=== PATIENT | female | born 1950 | race Caucasian/White ===

== ENCOUNTER → 2016-11-10 | Day surgery (SDC) | payer MEDICARE, BC ==
[~2016-11-10] VITALS: Ht 157.5 cm; Wt 78.9 kg
[~2016-11-10] MED LIST: *HYDROmorphone PF 1 MG VIAL PERIprocedural Use ONLY ONE; *MEPERIDINE 25 MG INJ VIAL PERIprocedural Use ONLY ONE; *RESP: ALBUTEROL 2.5 MG/3 ML NEB (PRN) PERIprocedural Use ONLY NEB ONE; ACETAMINOPHEN 1000 MG/100 ML VIAL IV ONE; ACETAMINOPHEN/HYDROcodone 325 MG/7.5 MG TAB PO PRN; ATOR20TA15 PO; BETAMETHASONE SOD PHOS/ACETATE SUSP 30 MG/5 ML VIAL IM ONE; BUPIVACAINE/EPINEPHRINE 0.25% PF 30 ML VIAL ONE; BUSP10TA PO; CHLO25TA2 PO; COLA100C3 PO; DO NOT ADM ANY ANTICOAGULANT DRUGS XX PRN; EFFE150C PO; FAMOTIDINE 20 MG/2 ML VIAL ONE; FISH120014 PO; GABA300C5 PO; GELATIN 12 MM/7 MM FOAM ONE; GENTAMICIN SULFATE 80 MG/2 ML VIAL IRRIGATION ONE; GENTAMICIN SULFATE 80 MG/2 ML VIAL ONE; HYDR-3366 PO; INSULIN HUMAN REGULAR 1,000 UNITS/10 ML VIAL SQ PRN; KETOROLAC TROMETHAMINE 60 MG/2 ML (IM) VIAL IM ONE; LACTATED RINGER'S 1000 ML IV SCH; LISI-515 PO; METO25TA3 PO; METOPROLOL TARTRATE 25 MG TAB PO PRN; MIDAZOLAM HCL 2 MG/2 ML VIAL ONE; MORPHINE SULFATE 4 MG/ML INJ IV PUSH PRN; NEOSTIGMINE 3 MG/3 ML SYR IV ONE; ONDANSETRON HCL 4 MG/2 ML VIAL IV ONE; PHENYLEPH/NS 1000 MCG/10 ML SYR IV ONE; POVIDONE IODINE 7.5% SCRUB 118 ML BOTTLE TOP SCH; PROPOFOL 200 MG/20 ML AMP IV ONE; RANI300T PO; SODIUM CHLOR 0.9% 250 ML INJ 250 ML IV ONE; SODIUM CHLORID 0.9% 500 ML IV SCH; SODIUM CHLORIDE 5 ML FLUSH BID IVF SCH; SODIUM CHLORIDE 5 ML FLUSH PRN IVF; TRAZ50TA12 PO; VASOPRESSIN INJ 20 UNITS/ML VIAL ONE; VITA200013 PO; WALKER WHEELS/F1 MIS; ePHEDrine/NS 25 MG/5 ML SYR IV ONE; fentaNYL CITRATE 250 MCG/5 ML AMP ONE; traMADol HCL 50 MG TAB PO PRN
[2016-11-10 06:21] VITALS: BP 156/88; PULSE 55; RESP 18; TEMP 98; O2SAT 96
[2016-11-10] MEDS: ceFAZolin 2 GM PREMIX 50 ML IV SCH ×2 (07:17→07:49)
--- NOTE | 2016-11-10 07:40 | MH ---
cc: WILL LUIS DATE OF ADMISSION 11/10/2016 ADMISSION DIAGNOSIS Herniated nucleus pulposus lumbar spine. HISTORY This is a 66-year-old female with severe right hip and leg pain. Investigative studies shows evidence of a disk herniation L4-5 to the right. The patient has had a previous lumbar laminectomy at that level approaching from the left with a bilateral decompression. The patient now has a disk herniation centrally causing significant right lateral recess stenosis and right leg pain and weakness. She presents for surgical treatment. PAST MEDICAL HISTORY, SOCIAL HISTORY AND FAMILY HISTORY See attached notes. PHYSICAL EXAMINATION An average built female in moderate stress with her back, right hip and leg. HEENT: Normocephalic, atraumatic. Pupils equal, round, reactive to light and accommodation. Extraocular motions intact. NECK: Supple. CHEST: Clear. HEART: Regular rate and rhythm. ABDOMEN: Soft, nontender, normoactive bowel sounds. MUSCULOSKELETAL: Thoracolumbar spine restricted motion, pain with range of motion. [id number] is positive on the right, negative on the left. Motor examination shows weakness of the right extensor halluces longus. IMPRESSION 1. Status post lumbar laminectomy L4-5. 2. 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 3. Right lumbosacral radiculopathy PLAN Revision lumbar laminectomy right L4, L5, lateral recess decompression, resection herniated nucleus pulposus, use of dilation port and microscope. CONSENT The risks of surgery including infection, bleeding, loss of motion, continued pain, need for further surgery, neurologic or vascular injury. The patient understands these issues and wishes to press on with surgery as outlined above. MD ANA MARIA Hernandez/ANTHONY /10:51 PM /7:36 AM
[2016-11-10] MEDS: BUPIVACAINE/EPINEPHRINE 0.25% PF 30 ML VIAL ONE ×2 (07:50→08:13)
--- NOTE | 2016-11-10 09:29 | PD.OP ---
cc: Eduardo Worthy. Operative Report Date of Surgery: Nov 10, 2016 Preoperative Diagnosis: Lumbar spinal stenosis, L4 5. Herniated nucleus pulposus, L4 5, extruded. Right lumbosacral radiculopathy. Status post lumbar laminectomy, L4 5 Postoperative Diagnosis: Same Procedure: Revision lumbar laminectomy L4, L5 from the right, lateral recess decompression , resection herniated nucleus pulposus. Use of dilation port and microscope Anesthesia: Gen. Surgeon: Eduardo Worthy Philanthropy Officer(s): KEIRY Quach Operation and Findings: EBL: 300 cc INDICATION: Patient is a 66-year-old female status post previous laminectomy at the L4 5 level. The patient developed severe onset of back right hip and leg pain. Studies shows evidence of the sequestered disc herniation centrally into the right at the L4 5 level. This patient presents for surgical treatment. NOTE: Gisela Quach PA-C was present for the entire surgical procedure as my help desk assistant. In my medical opinion her skill and care was necessary for the proper management of this patient. PROCEDURE: The patient was brought to the operating room and anesthetized in the supine position. The patient was rolled to a prone position on a Brian frame on a Dionisio table. All pressure points were protected in the back was scrubbed with alcohol followed by Hibiclens followed by ChloraPrep and draped sterilely. A timeout was done and antibiotics were given. AP and lateral radiographic images were used to identify the proper levels and perform skin markings. We started from the right side at the 45 level. A paramedian incision was made and an off-midline fascial incision was made. A dilating system was placed down to the interlaminar space and held provisionally to the side of the table. The microscope was brought into the field. A high-speed bur under the microscope was used to perform a predominantly right-sided laminectomy from that side. A lateral recess decompression extending well above the disc space was accomplished using straight and angled Kerrison punches. A partial medial facetectomy was accomplished. There was evidence of a large sequestered disc herniation and multiple fragments above the disc space extending from an annular defect that was predominantly midline. Moderate to advanced scarring of the crossing L5 nerve root was found from previous scar tissue. Very carefully there was lysis of epidural cicatrix. We were able to free up the L5 nerve root almost completely. Just below the disc space was one area that it was adherent to the dura probably almost underneath the S1 nerve root. This could not be freed up. The crossing and exiting nerve roots were completely decompressed. The wound was irrigated copiously. A small piece of Gelfoam with Celestone was placed into the epidural space. Hemostasis was controlled. The deep fascia was approximated with interrupted 0 Vicryl suture subcutaneous suture with 2-0 Vicryl suture and skin with running intradermal 3-0 Vicryl followed by Dermabond. A field block with local anesthesia was utilized. A sterile dressing was applied. The sponge count and needle counts and instrument counts were all correct. The patient tolerated the procedure well as taken to the recovery room in satisfactory condition. FINDINGS: There was evidence of a very large sequestered disc herniation extending above the disc space near midline and extending to the right side. The exiting L4, crossing L5 nerve roots were freed up. There was no evidence of nerve root compression. There was moderate bleeding that was from a large epidural vein which was coagulated with bipolar cautery. FloSeal was used for hemostasis as well. Eduardo Worthy MD Nov 10, 2016 09:29
--- NOTE | 2016-11-10 10:07 | RADRPT ---
EXAM DATE/TIME: 11/10/2016 08:11 [facility] COMPARISON: SPINE LUMBAR LATERAL ONLY, November 14, 2013, 13:28. INDICATIONS : Laminectomy L4-5 MEDICAL HISTORY : None. SURGICAL HISTORY : None. ENCOUNTER: Initial ACUITY: 1 day PAIN SCORE: Non-responsive. LOCATION: Right Laminectomy L4-5 FINDINGS: A single lateral view of the lumbar spine was performed. There is a localization device placed poste riorly at the second from the bottom disc space level which is most likely L4-L5.. CONCLUSION: Level localization L4-5. Sky Gallego MD on November 10, 2016 at 10:05 Board Certified Radiologist. This report was verified electronically.
--- NOTE | 2016-11-10 10:35 | RADRPT ---
EXAM DATE/TIME: 11/10/2016 10:07 [facility] COMPARISON: SPINE LUMBAR LATERAL ONLY, November 10, 2016, 8:11. INDICATIONS : Instrument verification. MEDICAL HISTORY : None. SURGICAL HISTORY : Left total hip srthroplasty. ENCOUNTER: Subsequent ACUITY: 1 day PAIN SCORE: 5/10 LOCATION: Lumbar spine. FINDINGS: A single AP view of the lumbar spine was performed. There is normal alignment of the vertebral aclly s without evidence of subluxation. Vertebral body height and disc space height is maintained. No for eign object is identified. There are cholecystectomy clips present CONCLUSION: Unremarkable examination of the lumbar spine. No foreign bodies identified correspond with a surgica l needle Jessee Chan MD on November 10, 2016 at 10:33 Board Certified Radiologist. This report was verified electronically.
[2016-11-10 12:57] VITALS: BP 133/73; PULSE 60; RESP 16; TEMP 97.5; O2SAT 96
== END | disposition home or self-care (01) ==
LOC: HSDC 05:27
PROVIDERS: ATTEND Orthopaedic Surgery Orthopaedic Surgery of the Spine
DX: M51.16 Intervertebral disc disorders with radiculopathy, lumbar region (principal); M48.06 Spinal stenosis, lumbar region; I10 Essential (primary) hypertension
CPT/HCPCS: 00630; 63040; 72020; 76000; 86850; 86900; 86901; J0131; J0690; J0702; J1170; J1580; J1885; J2175; J2250; J2370; J2405; J2710; J3010; J7050; J7613